=== PATIENT | female | born 1990 | race Caucasian/White ===

== ENCOUNTER → 2017-04-27 | Outpatient (REF) | payer OTHER | LOC: M LAB REF 17:22 | PROVIDERS: ATTEND Internal Medicine | DX: R73.9 Hyperglycemia, unspecified (principal) ==

== ENCOUNTER → 2018-09-10 | Outpatient (CLI) | payer OTHER ==
--- NOTE | 2018-09-10 13:00 | REP ---
Emergency first trimester obstetric sonography: History: Lower abdominal pain. Findings: Transabdominal scanning is performed. There is a single living intrauterine gestation. Embryonic pole measures 11.3 mm in crown-rump length. This corresponds with a gestational age estimate of 7 weeks 2 days. heart rate is recorded at 144 beats per minute. No subchorionic hemorrhage is seen. There is a somewhat hypoechoic corpus luteum cyst in the maternal left ovary measuring 3.3 cm in greatest diameter. Impression: Viable single intrauterine gestation at 7 weeks 2 days by crown-rump length. 3.3 cm corpus luteum cyst. VIVIEN by sonography April 27, 2019. Electronically Signed by Juni Thornton MD 09/10/2018 03:36 P
== END ==
LOC: M RAD 11:57
PROVIDERS: ATTEND Physician Assistant
DX: R10.30 Lower abdominal pain, unspecified (principal); Z32.01 Encounter for pregnancy test, result positive; Z3A.01 Less than 8 weeks gestation of pregnancy

== ENCOUNTER → 2018-09-10 | Outpatient (CLI) | payer OTHER ==
[2018-09-10 12:32] LABS: BASO # 0.1 10^3/uL (0.0-0.2); BASO % 0.4 % (0.0-1.0); EOS # 0.1 10^3/uL (0.0-0.50); EOS % 0.7 % (0.0-3.0); HEMATOCRIT 39.6 % (36.0-47.0); HEMOGLOBIN 13.4 g/dl (12.0-15.5); LYMPH # 2.8 10^3/uL (1.5-6.5); LYMPH % 19.9 % (24.0-44.0); MEAN CORPUSCULAR HEMOGLOBIN 28.9 pg (27.0-33.0); MEAN CORPUSCULAR HGB CONC 33.8 g/dl (32.0-36.5); MEAN CORPUSCULAR VOLUME 85.5 fl (80.0-96.0); MONO # 0.6 10^3/uL (0.0-0.8); NEUTROPHILS # 10.6 10^3/uL (1.8-7.7); NEUTROPHILS % 74.5 % (36.0-66.0); PLATELET COUNT, AUTOMATED 305 10^3/uL (150-450); RED BLOOD COUNT 4.63 10^6/uL (4.00-5.40); WHITE BLOOD COUNT 14.2 10^3/uL (4.0-10.0)
[2018-09-10 12:59] LABS: ALBUMIN 3.7 GM/DL (3.2-5.2); ALT/SGPT 21 U/L (12-78); BILIRUBIN,TOTAL 0.5 MG/DL (0.2-1.0); BLOOD UREA NITROGEN 6 MG/DL (7-18); CALCIUM LEVEL 8.8 MG/DL (8.5-10.1); CARBON DIOXIDE LEVEL 25 MEQ/L (21-32); CHLORIDE LEVEL 102 MEQ/L (98-107); CREATININE FOR GFR 0.71 MG/DL (0.55-1.30); GLOMERULAR FILTRATION RATE > 60.0 (>60); GLUCOSE, FASTING 100 MG/DL (70-100); HCG, SERUM QUANTITATIVE 28721 MIU/ML; POTASSIUM SERUM 4.4 MEQ/L (3.5-5.1); SODIUM LEVEL 135 MEQ/L (136-145); TOTAL PROTEIN 7.9 GM/DL (6.4-8.2)
== END ==
LOC: M WUC 11:12
PROVIDERS: ATTEND Internal Medicine
DX: R10.30 Lower abdominal pain, unspecified (principal)

== ENCOUNTER → 2018-09-10 | Outpatient (REF) | payer OTHER ==
[2018-09-12 08:31] LABS: CHLAMYDIA DNA AMPLIFICATION NEGATIVE (NEGATIVE); GC DNA AMPLIFICATION NEGATIVE (NEGATIVE)
== END ==
LOC: M LAB REF 11:48
PROVIDERS: ATTEND Physician Assistant
DX: R10.30 Lower abdominal pain, unspecified (principal)

== ENCOUNTER → 2018-09-27 | Outpatient (CLI) | payer OTHER ==
[2018-09-27 14:02] LABS: HEMOGLOBIN A1c 6.6 %
== END ==
LOC: M SMT 10:32
PROVIDERS: ATTEND Obstetrics & Gynecology
DX: O24.111 Pre-existing type 2 diabetes mellitus, in pregnancy, first trimester (principal)

== ENCOUNTER → 2018-11-24 | Outpatient (CLI) | payer OTHER ==
--- NOTE | 2018-11-24 14:16 | REP ---
OB ULTRASOUND: Real-time sonographic evaluation of the gravid uterus is performed. There is a single living intrauterine gestation. Estimated gestational age is 18 weeks, EDC 04/27/2019. Today's measurements indicate appropriate growth. BPD 40 mm = 18 weeks 0 days, 52nd percentile HC 159 mm = 18 weeks 5 days, 73rd percentile AC 127 mm = 18 weeks 2 days, 56th percentile Femur length 30 mm = 19 weeks 2 days, 82nd percentile HC/AC ratio 1.25 within normal range. Estimated weight 254 grams, 76th percentile. Cervix is closed and measures 4.4 cm in length. heart rate 141 beats per minute. SEEN/GROSSLY UNREMARKABLE Lateral ventricles Yes Posterior fossa No Upper lip No Four-chamber heart No LVOT No RVOT No Stomach Yes Cord insertion Yes Three vessel cord Yes Kidneys Yes Bladder Yes Spine No position: Breech. Placenta: Posterior and grade 0 with no previa or abruption. Amniotic fluid: Within normal limits. Electronically Signed by Dallas Marquez MD 11/25/2018 10:54 A
== END ==
LOC: M RAD 10:29
PROVIDERS: ATTEND Obstetrics & Gynecology
DX: O24.111 Pre-existing type 2 diabetes mellitus, in pregnancy, first trimester (principal); Z3A.18 18 weeks gestation of pregnancy; O32.1XX0 Maternal care for breech presentation, not applicable or unspecified

== ENCOUNTER → 2018-12-10 | Outpatient (CLI) | payer OTHER ==
--- NOTE | 2018-12-10 18:40 | REP ---
Obstetric sonography: History: Supervision of for anatomy. Follow-up study. Findings: Scanning through the gravid uterus demonstrates a viable single intrauterine gestation in a cephalic lie. motion is observed and heart rate is recorded at 136 beats per minute. A posterior grade zero placenta is seen without evidence of previa or abruption. Amniotic fluid is subjectively normal. Closed cervical length is 3.7 cm. No extrauterine abnormalities observed. There has been appropriate interval growth. Exam quality is inhibited by maternal body habitus. spine still less than optimally seen in the axial plane. Sagittal imaging is unremarkable. The upper extremities are less than optimally seen due to position but these were identified previously. The following additional anatomic structures are identified today and felt to be unremarkable: cranium, choroid plexus, cavum, cerebellum and posterior fossa, face and profile, lungs, four-chamber heart with left and right ventricular outflow tract views, diaphragm, left-sided stomach, abdominal wall cord insertion, three-vessel cord, kidneys and bladder, lower extremities. Biometry chart: BPD 4.5 cm 19 weeks 4 days Head circumference 18.3 cm 20 weeks 5 days Abdominal circumference 16.2 cm 21 weeks 2 days Femur length 3.4 cm 20 weeks 6 days Humeral length 3.6 cm 22 weeks 3 days HC/AC ratio normal 1.13, cephalic index normal 0.66 (0.70-0.86) estimated weight 390 grams, 0 pounds 13 ounces, 71st percentile for 20 weeks 2 days. Impression: Viable single intrauterine gestation at 21 weeks 0 days by today's sonographic criteria. Expected gestational age estimate based on prior sonography is 20 weeks 2 days. VIVIEN by prior sonography April 27, 2019. Electronically Signed by Juni Thornton MD 12/10/2018 08:29 P
== END ==
LOC: M RAD 15:24
PROVIDERS: ATTEND Obstetrics & Gynecology
DX: O24.112 Pre-existing type 2 diabetes mellitus, in pregnancy, second trimester (principal); Z3A.21 21 weeks gestation of pregnancy

== ENCOUNTER → 2018-12-31 | Outpatient (CLI) | payer OTHER ==
--- NOTE | 2018-12-31 19:10 | REP ---
Clinical: Anatomical evaluation. Comparison: 12/10/2018 . Findings: Examination demonstrates a single live intrauterine in breech presentation. motion is identified by technologist. Placenta is noted anterior/fundal and grade zero without evidence for placenta previa or abruption. Amniotic fluid volume is normal. Cervix measures 4.3 cm in length and appears closed. No evidence for nuchal cord. Gestational age by LMP 23 weeks 2 days with VIVIEN 04/27/2019 . Gestational age by current measurements 23 weeks 1 day with VIVIEN 04/28/2019 . FHR equals 125 beats per minute. Estimated weight 656 grams ( 69th percentile). Anatomical assessment demonstrates normal structures including cranium, choroid plexus, cavum, facial features, lungs, diaphragm, stomach, cord insertion/three-vessel cord, kidneys/bladder, and spine. Impression: Single live intrauterine in breech presentation demonstrating appropriate interval growth. In conjunction with prior examination anatomical assessment is complete and normal. No gross abnormalities are identified. Electronically Signed by Marquise Maya MD 12/31/2018 07:01 P
== END ==
LOC: M RAD 17:42
PROVIDERS: ATTEND Obstetrics & Gynecology
DX: O24.112 Pre-existing type 2 diabetes mellitus, in pregnancy, second trimester (principal); O32.1XX0 Maternal care for breech presentation, not applicable or unspecified; Z3A.23 23 weeks gestation of pregnancy

== ENCOUNTER → 2019-02-01 | Outpatient (REF) | payer OTHER | LOC: M LAB REF 13:04 | PROVIDERS: ATTEND Specialist | DX: O24.112 Pre-existing type 2 diabetes mellitus, in pregnancy, second trimester (principal); Z3A.00 Weeks of gestation of pregnancy not specified ==

== ENCOUNTER → 2019-02-17 | Outpatient (CLI) | payer OTHER ==
--- NOTE | 2019-02-17 13:45 | REP ---
OB ULTRASOUND: Real-time sonographic evaluation of the gravid uterus performed. There is a single living intrauterine gestation with an estimated gestational age 30 weeks 1 day, EDC 04/27/2019. Today's measurements indicate appropriate growth. Biometry and Growth: BPD 74 mm = 29 weeks 6 days, 44th percentile HC 277 mm = 30 weeks 2 days, 52nd percentile AC 287 mm = 32 weeks 5 days, 89th percentile FL 62 mm = 32 weeks 2 days, 82nd percentile HC/AC ratio 0.96 slightly below normal range of 0.97 to 1.16 Estimated weight 1898 grams, 87th percentile. Visualized anatomy today includes stomach, three-vessel cord, kidneys, bladder, and spine which are grossly unremarkable. heart rate: 141 beats per minute. position: Vertex, Placenta: Posterior and grade 2 with no previa or abruption. Amniotic fluid: Within normal limits, MYNOR 15.0 within normal range of 9.0 to 23.5 S/D ratio: 2.19 below normal range of 2.5 to 3.5. RI: 0.54 below normal range of 0.59 to 0.75. Electronically Signed by Dallas Marquez MD 02/20/2019 07:13 P
== END ==
LOC: M RAD 09:21
PROVIDERS: ATTEND Specialist
DX: O24.112 Pre-existing type 2 diabetes mellitus, in pregnancy, second trimester (principal)

== ENCOUNTER → 2019-02-24 | Outpatient (CLI) | payer OTHER, MEDICAID ==
--- NOTE | 2019-02-25 07:13 | REP ---
OB ULTRASOUND AND BIOPHYSICAL PROFILE: Real-time sonographic evaluation of the gravid uterus performed. There is a single living intrauterine gestation with estimated gestational age reportedly 31 weeks 1 day, EDC 04/27/2019. Cervix is closed and measures approximately 2.8 cm in length. heart rate is 158 beats per minute. Amniotic fluid appears within normal limits, MYNOR 11.1 within normal range of 8.8 to 23.9. Biophysical profile score is 8/8. S/D ratio 2.20 is below normal range of 2.5 to 3.5. RI 0.54 is below normal range of 0.59 to 0.75. position vertex. Placenta is on the right, grade 1, with no previa or abruption. Electronically Signed by Dallas Marquez MD 02/25/2019 08:52 A
== END ==
LOC: M RAD 16:55
PROVIDERS: ATTEND Obstetrics & Gynecology
DX: O24.113 Pre-existing type 2 diabetes mellitus, in pregnancy, third trimester (principal); Z3A.31 31 weeks gestation of pregnancy; Z36.9 Encounter for antenatal screening, unspecified

== ENCOUNTER → 2019-03-03 | Outpatient (CLI) | payer OTHER, MEDICAID ==
--- NOTE | 2019-03-03 11:54 | REP ---
Obstetric ultrasound for biophysical profile for type 2 preexisting diabetes in . Gestational age by the first ultrasound is 32 weeks 1 day/VIVIEN is 04/27/2019. There is a single intrauterine gestation in a vertex presentation. The heart rate is 147 beats per minute. The placenta is posterior / fundal without evidence of previa or abruptio. The placenta is grade 1. Subjectively the amniotic fluid volume is normal. Amniotic fluid index: 10.0 (8.6 - 24.2). biophysical profile: Breathing 2.0 Movement 2.0 Tone 2.0 AFV 2.0 Total 8.0 / 8.0 Umbilical artery Doppler assessment: S/D ratio 2.03 (2.30-3.30) Resistive Index 0.51 (0.59-0.75 Diastolic Velocity 23.5 (>10 cm/sec) Electronically Signed by Dallas Clements MD 03/03/2019 11:46 A
== END ==
LOC: M RAD 10:56
PROVIDERS: ATTEND Obstetrics & Gynecology
DX: O24.113 Pre-existing type 2 diabetes mellitus, in pregnancy, third trimester (principal)

== ENCOUNTER → 2019-03-10 | Outpatient (CLI) | payer OTHER, MEDICAID ==
[~2019-03-10] MED LIST: COLA100C5 PO; GLUC500T PO; IBUP80TA PO; INSUNSD SC; INSURSD SC; PERCOCET PO; ZANT150T40 PO
--- NOTE | 2019-03-11 03:31 | REP ---
Clinical: well-being Comparison: 03/03/2019 . Findings: Examination demonstrates a single live intrauterine in cephalic presentation. motion is identified by technologist. Placenta is noted posterior/right lateral and grade zero without evidence for placenta previa or abruption. Amniotic fluid volume is normal. Cervix appears closed. No evidence for nuchal cord. Gestational age by LMP 33 weeks 1 day with VIVIEN 04/27/2019 . Gestational age by current measurements 34 weeks 6 days with VIVIEN 04/15/2019 . FHR equals 138 beats per minute. BPD 8.3 cm 33 weeks 3 days HC 30.9 cm 34 weeks 4 days AC 31.8 cm 35 weeks 5 days FL 7.0 cm 35 weeks 5 days HL 6.0 cm 34 weeks 5 days HC/AC ratio 0.97 Estimated weight 2660 grams ( 90th percentile). Biophysical profile score: 8/8 Umbilical cord SD ratio: 2.33 Amniotic fluid index: 12.7 cm Impression: Single live intrauterine in cephalic. Growth is upper limits of normal. No gross abnormality identified. Electronically Signed by Marquise Maya MD 03/11/2019 03:22 A
== END ==
LOC: M RAD 10:56
PROVIDERS: ATTEND Obstetrics & Gynecology
DX: O24.113 Pre-existing type 2 diabetes mellitus, in pregnancy, third trimester (principal); Z3A.34 34 weeks gestation of pregnancy

== ENCOUNTER → 2019-03-17 | Outpatient (CLI) | payer OTHER, MEDICAID ==
[~2019-03-17] MED LIST changes: -COLA100C5 PO; -GLUC500T PO; -IBUP80TA PO; -PERCOCET PO
--- NOTE | 2019-03-17 12:01 | REP ---
REASON FOR EXAM: Obtain biophysical profile, limited OB ultrasound, gestational diabetes. Multiple ultrasonographic images of the gravid uterus show a single living intrauterine gestation in the cephalic presentation. Doppler interrogation of the heart shows a heart rate of 152 beats per minute. Doppler interrogation of the umbilical artery shows an A/B ratio of 2.04. This is within the normal range. The subjective amniotic fluid volume is within normal limits. The calculated amniotic fluid index is 10.2 with an expected range 8.1 to 24.8. The placenta is right lateral and not low lying. The umbilica cord is seen draping over the neck. Biophysical Profile Scores: breathing 2 movement 2 Tone 2 Amniotic fluid volume 2 Giving a sum total of 8 out of 8. IMPRESSION: Limited OB ultrasound as described above. Electronically Signed by Sebastián Alexander DO 03/17/2019 03:41 P
== END ==
LOC: M RAD 10:22
PROVIDERS: ATTEND Obstetrics & Gynecology
DX: O24.113 Pre-existing type 2 diabetes mellitus, in pregnancy, third trimester (principal)

== ENCOUNTER 2019-03-23 11:35 | Outpatient (CLI) | payer OTHER, MEDICAID ==
[~2019-03-23] VITALS: Ht 160 cm; Wt 121.1 kg
[2019-03-23 12:23] VITALS: BP 109/59
[2019-03-23 12:59] LABS: HEMOGLOBIN 11.3 g/dl (12.0-15.5); MEAN CORPUSCULAR HEMOGLOBIN 26.7 pg (27.0-33.0); MEAN CORPUSCULAR HGB CONC 32.3 g/dl (32.0-36.5); MEAN CORPUSCULAR VOLUME 82.5 fl (80.0-96.0); PLATELET COUNT, AUTOMATED 253 10^3/uL (150-450); RED BLOOD COUNT 4.24 10^6/uL (4.00-5.40); WHITE BLOOD COUNT 12.8 10^3/uL (4.0-10.0)
[2019-03-23 13:39] LABS: ALBUMIN 2.4 GM/DL (3.2-5.2); ALT/SGPT 19 U/L (12-78); BILIRUBIN,TOTAL 0.3 MG/DL (0.2-1.0); BLOOD UREA NITROGEN 7 MG/DL (7-18); CALCIUM LEVEL 8.6 MG/DL (8.5-10.1); CARBON DIOXIDE LEVEL 23 MEQ/L (21-32); CHLORIDE LEVEL 107 MEQ/L (98-107); CREATININE FOR GFR 0.55 MG/DL (0.55-1.30); GLOMERULAR FILTRATION RATE > 60.0 (>60); GLUCOSE, FASTING 96 MG/DL (70-100); POTASSIUM SERUM 4.3 MEQ/L (3.5-5.1); SODIUM LEVEL 138 MEQ/L (136-145); TOTAL PROTEIN 6.7 GM/DL (6.4-8.2)
[2019-03-23 13:55] LABS: HEMOGLOBIN A1c 6.8 %
[2019-03-23] MEDS: BETAMETHASONE SOLUSPAN 6MG/ML INJ 5ML (J0702) IM SCH (14:05)
[2019-03-23] MEDS ORDERED: INSUNSD SC (14:31)
[2019-03-23] MEDS ORDERED: ZANT150T40 PO (14:31)
[2019-03-23] MEDS ORDERED: INSURSD SC (14:31)
[2019-03-23 15:17] VITALS: BP 105/55
--- NOTE | 2019-03-23 15:23 | REP ---
OB ULTRASOUND AND BIOPHYSICAL PROFILE: Real-time sonographic evaluation of the gravid uterus performed. There is a single living intrauterine gestation. The estimated gestational age is 35 weeks 0 days, EDC 04/27/2019. heart rate 143 beats per minute. Amniotic fluid appears within normal limits, MYNOR 10.6 within normal range of 7.9 to 24.9. Biophysical profile score is 8/8. S/D ratio 2.32 within normal range of 2.0 to 3.0. RI 0.57 is slightly below normal range of 0.59 to 0.75. position vertex. Placenta is on the right and grade 1 with no previa or abruption. Electronically Signed by Dallas Marquez MD 03/25/2019 10:46 A
--- NOTE | 2019-03-23 16:06 | IPN ---
DATE: 03/23/2019 Sharyn is a 27-year-old 1, para 0 at 35 weeks gestation, EDC of 04/27/2019 based on first trimester ultrasound. She presents to labor and delivery today per consult with Dr. Roque Mcnair with report of her 2-hour postprandial following breakfast glucose elevated at greater than 200 and decreased movement. She does deny contractions, vaginal bleeding or leakage of fluid. The fetus has been active. Her care was initiated at [facility] in the first trimester. Her course complicated by preexisting diabetes, insulin dependent diabetes, not very well controlled. OBSTETRICAL HISTORY: [facility]: O positive. Antibody screen negative, rubella equivocal, VDRL nonreactive. Urine culture no growth. Hepatitis B surface antigen negative, HIV negative. Hepatitis C antibody nonreactive. Gonorrhea and chlamydia negative. Hemoglobin A1c on 01/26/2019 was 5.5. Group B streptococcus (GBS) is unknown at this time. She did not undergo genetic serum screening labs. PAST MEDICAL HISTORY: Preexisting diabetes, abnormal Pap smear, childhood varicella. SURGERIES: [place] tooth extraction, colposcopy. FAMILY HISTORY: Diabetes, hypertension, heart disease and asthma. SOCIAL HISTORY: The patient is . She is a non-smoker. She denies alcohol and drug use. She does report a remote history of gonorrhea. She denies history of abuse -- physical, sexual and emotional. ALLERGIES: No known drug allergies. CURRENT MEDICATIONS: Include vitamin. Humulin NPH insulin 58 units with Humulin regular insulin 34 units every morning, Humulin NPH insulin 30 units, Humulin R insulin 34 units every night. OBJECTIVE: Temperature 97.6, pulse 100, respirations 16. Blood pressure is 109/59. She is alert and oriented times three. She does not appear in any distress. heart rate is 140 with moderate variability, positive accelerations and negative decelerations. There is no pattern of contractions. Sterile vaginal exam is deferred. Her BPP today is normal with a score of 8 out of 8. MYNOR is 10.6 cm. CBC with a white count of 12.8, hemoglobin 11.3, hematocrit 35 and platelets 253. Her glucose was 96 with her lab draw and bedside fingerstick was 113. All other labs within normal limits. Her hemoglobin A1c today is 6.8 with an average estimated glucose of 148. ASSESSMENT: Intrauterine at 35 weeks. heart rate category 1 and uncontrolled diabetes, per patient report. PLAN: Per consult with Dr. Roque Mcnair, the patient is to be observation. We will do continuous monitoring. She has been given one dose of betamethasone and the plan is to keep her overnight until her second betamethasone. Further plan of care will be made at that time pending the continuous monitoring and her glucose management.
[2019-03-23] MEDS ORDERED: HumuLIN R (REGULAR) INSULIN (NovoLIN R) **100U/ML** PER UNIT SC SCH (18:30)
[2019-03-23] MEDS ORDERED: HumuLIN N INSULIN (NovoLIN N) PER UNIT SC SCH (18:30)
[2019-03-23 18:52] VITALS: BP 123/71
[2019-03-23 20:31] VITALS: BP 132/60
[2019-03-23 21:42] VITALS: BP 132/86
[2019-03-23 22:57] VITALS: BP 118/59
[2019-03-24 03:02] VITALS: BP 110/58
[2019-03-24 06:45] VITALS: BP 119/66
[2019-03-24] MEDS ORDERED: HumuLIN N INSULIN (NovoLIN N) PER UNIT SC SCH (07:30)
[2019-03-24] MEDS ORDERED: HumuLIN R (REGULAR) INSULIN (NovoLIN R) **100U/ML** PER UNIT SC SCH (07:30)
[2019-03-24 13:46] VITALS: BP 108/55
[2019-03-24] MEDS: BETAMETHASONE SOLUSPAN 6MG/ML INJ 5ML (J0702) IM SCH (14:17)
== END 2019-03-24 16:00 | disposition home or self-care (01) ==
LOC: M LDO 11:35
PROVIDERS: ATTEND Advanced Practice Midwife
DX: O99.810 Abnormal glucose complicating pregnancy (principal); O36.8130 Decreased fetal movements, third trimester, not applicable or unspecified; Z3A.35 35 weeks gestation of pregnancy
CPT/HCPCS: 36415; 59025; 76815; 76819; 76820; 80053; 83036; 85027; 87081; 96372; G0378; G0463; J0702

== ENCOUNTER 2019-03-30 09:02 | Inpatient (IN) | payer OTHER, MEDICAID ==
[2019-03-30] VITALS (9 sets, daily range): BP systolic 106–135; BP diastolic 54–71
[~2019-03-30] VITALS: Ht 160 cm; Wt 120.8 kg
[2019-03-30] MEDS ORDERED: INSURSD SC (09:34)
[2019-03-30] MEDS ORDERED: INSUNSD SC (09:34)
[2019-03-30] MEDS ORDERED: INSULIN HUMAN REGULAR 100 UNITS in NS 99 ML IV SCH ×2 (10:00→23:00)
[2019-03-30 10:33] LABS: HEMATOCRIT 35.5 % (36.0-47.0); HEMOGLOBIN 11.7 g/dl (12.0-15.5); MEAN CORPUSCULAR HEMOGLOBIN 27.5 pg (27.0-33.0); MEAN CORPUSCULAR VOLUME 83.3 fl (80.0-96.0); PLATELET COUNT, AUTOMATED 258 10^3/uL (150-450); RED BLOOD COUNT 4.26 10^6/uL (4.00-5.40); WHITE BLOOD COUNT 13.5 10^3/uL (4.0-10.0)
[2019-03-30] MEDS ORDERED: SLF 3 ML SYR IV PRN (10:45)
[2019-03-30] MEDS: INSULIN HUMAN REGULAR 100 UNITS in NS 99 ML IV SCH ×2 (11:26→15:47)
[2019-03-30] MEDS: NS 1,000 ML IV SCH ×2 (11:30→18:00)
[2019-03-30] MEDS: miSOPROStol 50 MCG 1/2 TAB (S0191) PO SCH ×2 (14:19→18:35)
--- NOTE | 2019-03-30 19:13 | HPE ---
DATE OF ADMISSION: 03/30/2019 HISTORY OF PRESENT ILLNESS: The patient is a 28-year-old female who is a 1, para 0 at 36 weeks gestation with an estimated due date (VIVIEN) of 04/27/2019 based off of her first trimester ultrasound. She initiated care in her first trimester with [facility]. Her has been complicated by type 2 diabetes which has been difficult to control. The patient presents to labor and delivery for an induction of labor at 36 weeks gestation for uncontrolled gestational diabetes. She reports active movement. She denies contractions, vaginal bleeding or leaking of fluid. ALLERGIES: No known drug allergies. CURRENT MEDICATIONS: She has currently been using a morning dose of NPH insulin 58 with regular at 34 units and her evening dose of NPH is 30 units with regular of 34 units and vitamins. LABORATORY DATA: Her blood type is O+, antibody screen is negative. Her hemoglobin and hematocrit in her first trimester was 12.9 and 38.7 with platelets of 306. She is equivocal to Rubella. VDRL is nonreactive. Her urine culture had mixed julian. HIV is negative. Hepatitis C is nonreactive. Gonorrhea and Chlamydia are both negative. Her third trimester hemoglobin and hematocrit level was 11.5 and 34.4 with platelets of 260. Her GBS is negative. Her early hemoglobin A1c was 6.6 and third trimester hemoglobin A1c is 5.5. Her repeat urine culture was negative. PAST MEDICAL HISTORY: Type 2 diabetes. PAST SURGICAL HISTORY: Colposcopy in 2008 and her wisdom teeth. SOCIAL HISTORY: The patient denies any history of alcohol or drug abuse prior to or during . She reports she is not a smoker. She has a history of gonorrhea in the past. VITAL SIGNS: Temperature 98.0, heart rate is 106, respiratory rate is 18, blood pressure is 134/68. heart rate is 140, moderate variability, positive accelerations, no decelerations. Contractions are occasional. STERILE VAGINAL EXAMINATION (SVE): 1 cm dilated, 75% effaced, -3 station, anterior, soft moderate with scant amount of bloody show with examination. PHYSICAL EXAMINATION: GENERAL: Alert and oriented times three. RESPIRATORY: Regular rate and no use of accessory muscles. ABDOMEN: Gravid, cephalic presentation via Jesus's and sterile vaginal examination (SVE). LOWER EXTREMITIES: Generalized edema. No clonus. ASSESSMENT: Intrauterine (IUP) at 36 weeks gestation, induction of labor for uncontrolled gestational diabetes, negative group B Streptococcus (GBS), category 1 heart rate tracing. PLAN: After consulting Dr. Mcnair his recommendation is for IOL. Admit the patient to labor and delivery. Out of bed ad ezequiel. Carbohydrate-counted diet. Saline lock and laboratories per unit protocol. Insulin drip ordered to help maintain blood sugars with sliding scale. Fingersticks every 2 hours while in latent labor and every 1 hour while in active labor. Cytotec ordered for cervical ripening. Anesthesia consult per the patient's request. Anticipate cervical ripening. MTDD
[2019-03-30] MEDS: INSULIN IV RATE CHANGE DOCUMENTATION ML/HR XX SCH ×2 (20:04→21:56)
[2019-03-30] MEDS: SLF 3 ML SYR IV SCH ×2 (22:00→23:27)
--- NOTE | 2019-03-30 22:59 | IPNPDOC ---
Obstetrical Progress Note Date of Service Mar 30, 2019 Subjective Patient reports feeling cramping. She desires something to help her sleep. Objective Vital Signs Date Time Temp Pulse Resp B/P (MAP) Pulse Ox O2 Delivery O2 Flow Rate FiO2 03/30/19 22:43 98.5 79 18 127/71 (89) Assessment Heart Rate (FHR): 150 Variability: Moderate Accelerations: Positive Decelerations: None Heart Rate Tracing: Category I Tocometer Contractions: Yes Frequency: regular, other (2-4 minutes) Sterile Vaginal Examination Dilation: 1cm Effacement (%): other (75%) Station: -3 Cervical Consistency: Soft Cervical Position: Anterior Postion/Presentation: Cephalic presentation Assessment and Plan Age: 28 : 1 Term: 0 Pre-term: 0 Abortions: 0 Livin EGA at Admission: 36.0 Status: Reassuring Group B Streptococcus: Negative Anticipate: Vaginal Delivery Additional Comments Cook's toney bulb placed with 50/40 cc of sterile water. Patient tolerated well. IV Pitocin ordered and to be started. Patient continues with every 2 hour fingersticks and insulin drip as needed. Benadryl PO ordered to help with sleep. TESSA DENNIS CNM Mar 30, 2019 22:59
[2019-03-30] MEDS ORDERED: diphenhydrAMINE 25 MG CAP PO ONE (23:00)
[2019-03-30] MEDS ORDERED: diphenhydrAMINE 50 MG CAP PO ONE (23:00)
[2019-03-30] MEDS ORDERED: NS 1,000 ML IV SCH (23:00)
[2019-03-30] MEDS ORDERED: OXYTOCIN DRIP 30 UNITS in APPROPRIATE DILUENT 1 EA IV SCH (23:00)
[2019-03-30] MEDS ORDERED: DOCUSATE SODIUM 100 MG CAP PO PRN (23:45)
[2019-03-30] MEDS ORDERED: GLYCERIN ADULT SUPP PR PRN (23:45)
[2019-03-31] VITALS (19 sets, daily range): BP systolic 96–145; BP diastolic 53–94
[2019-03-31] MEDS: SLF 3 ML SYR IV SCH (06:00)
[2019-03-31] MEDS: NS 1,000 ML IV SCH (06:09)
--- NOTE | 2019-03-31 13:59 | IPNPDOC ---
Text Note Date of Service The patient was seen on 03/31/19. NOTE S: Feeling contractions, no SROM. Feeling baby move O: Vitals stable Abdomen: Gravid SVE: 4/50/-3 FHR: 150 bpm, moderate variability, accels, no decels TOCO: contractions q2-5 minutes A/P: 28 yo at 36 weeks and 1 day EGA, being induced for uncontrolled DM - status reassuring -beta-complete -s/p cytotec x2, toney -AROM, IUPC and FSE placed -anticipate VS,Fishbone, I+O VS, Fishbone, I+O Vital Signs Date Time Temp Pulse Resp B/P (MAP) Pulse Ox O2 Delivery O2 Flow Rate FiO2 03/30/19 22:43 98.5 79 18 127/71 (89) I&O- Last 24 Hours up to 6 AM 03/31/19 05:59 Intake Total 400 ml Output Total 1250 ml Balance -850 ml GME ATTESTATION GME ATTESTATION My faculty preceptor for this patient encounter was physically present during the encounter and was fully available. All aspects of the patient interview, examination, medical decision making process, and medical care plan development were reviewed and approved by the faculty preceptor. The faculty preceptor is aware and concurs with the plan as stated in the body of this note and will attest to such by his/her cosignature. TAYE HERCULES DO Mar 31, 2019 13:59
[2019-03-31] MEDS ORDERED: FENTANYL 2MCG/ML ROPIVACAINE 0.2% IN 0.9% NACL 100ML IVBAG As Ordered ONE (15:48)
[2019-03-31] MEDS ORDERED: LACTATED RINGER'S 1000 ML IV PRN (17:00)
[2019-03-31] MEDS ORDERED: ePHEDrine SULFATE 25 MG/5 ML(5MG/ML) SYRINGE IV PRN (17:00)
[2019-03-31] MEDS ORDERED: NALOXONE INJ 0.4 MG/1 ML VIAL (J2310) IV PRN (17:00)
[2019-03-31] MEDS ORDERED: ONDANSETRON 4MG/2ML VIAL (J2405) IV PRN (17:00)
[2019-03-31] MEDS ORDERED: FENTANYL/ROPIVACAINE/NACL BAG 100 ML EPIDURAL SCH (17:00)
[2019-03-31] MEDS ORDERED: diphenhydrAMINE INJ 50MG/ML VIAL (J1200) IV PRN (17:00)
[2019-03-31] MEDS ORDERED: EPIDURAL/PCA KEYS XX PRN (17:00)
[2019-03-31] MEDS ORDERED: REFRIGERATOR IV KEYS XX PRN (17:00)
[2019-03-31] MEDS ORDERED: EPIDURAL COMMENT XX SCH (17:00)
--- NOTE | 2019-03-31 17:19 | IPNPDOC ---
Text Note Date of Service The patient was seen on 03/31/19. NOTE S: Much better pain control after epidural O: Vitals stable Abdomen: Gravid SVE: 5/50/-3 FHR: 150 bpm, moderate variability, accels, no decels TOCO: contractions q2-4 minutes A/P: 28 yo at 36 weeks and 1 day EGA, being induced for uncontrolled DM - status reassuring -beta-complete -s/p cytotec x2, toney -AROM, IUPC and FSE placed -epidural, resting comfortably -anticipate VS,Fishbone, I+O VS, Fishbone, I+O Vital Signs Date Time Temp Pulse Resp B/P (MAP) Pulse Ox O2 Delivery O2 Flow Rate FiO2 03/30/19 22:43 98.5 79 18 127/71 (89) I&O- Last 24 Hours up to 6 AM 03/31/19 06:00 Intake Total 400 ml Output Total 1250 ml Balance -850 ml GME ATTESTATION GME ATTESTATION My faculty preceptor for this patient encounter was physically present during the encounter and was fully available. All aspects of the patient interview, examination, medical decision making process, and medical care plan development were reviewed and approved by the faculty preceptor. The faculty preceptor is aware and concurs with the plan as stated in the body of this note and will attest to such by his/her cosignature. TAYE HERCULES DO Mar 31, 2019 17:18
[2019-03-31] MEDS ORDERED: BICITRA 30ML SOLN UDC As Ordered ONE (23:02)
[2019-03-31] MEDS ORDERED: ceFAZolin 2 GM/D5W 50 ML IV BAG (J0690 PER 500MG) As Ordered ONE (23:03)
[2019-03-31] MEDS ORDERED: AZITHROMYCIN INJ 500MG VIAL (J0456) As Ordered ONE (23:03)
[2019-03-31] MEDS ORDERED: AZITHROMYCIN INJ 500 MG, VIAL MATE ADAPTER 1 EACH in D5W 250 ML IV ONE (23:15)
[2019-03-31] MEDS ORDERED: BICITRA 30ML SOLN UDC PO ONE (23:15)
[2019-03-31] MEDS ORDERED: AZITHROMYCIN INJ 500 MG, VIAL MATE ADAPTER 1 EACH in NS 250 ML IV ONE (23:15)
[2019-04-01] VITALS (8 sets, daily range): BP systolic 97–120; BP diastolic 54–62
[2019-04-01] MEDS ORDERED: OXYTOCIN DRIP 30 UNITS in APPROPRIATE DILUENT 1 EA IV SCH (00:40)
[2019-04-01] MEDS: LR 1,000 ML IV SCH ×3 (00:40→16:40)
[2019-04-01] MEDS ORDERED: RHOGAM 300 MCG (1500 IU) INJ (J2790) IM SCH (00:45)
[2019-04-01] MEDS ORDERED: ACETAMINOPHEN 500 MG TAB PO PRN (00:45)
[2019-04-01] MEDS ORDERED: PROMETHAZINE 25 MG TAB PO PRN (00:45)
[2019-04-01] MEDS ORDERED: MEASLES,MUMPS,RUBELLA VACCINE INJ (MMR-II) (90707) SC SCH (00:45)
[2019-04-01] MEDS ORDERED: MEPERIDINE INJ 25 MG/ML VIAL (J2175) As Ordered ONE (00:47)
[2019-04-01] MEDS ORDERED: LR 1,000 ML IV SCH (01:15)
[2019-04-01] MEDS ORDERED: fentaNYL 100 MCG/2 ML INJECTION (J3010) IV PRN (01:15)
[2019-04-01] MEDS ORDERED: NALBUPHINE HCL 10 MG/ML AMP (J2300) IV PRN (01:15)
[2019-04-01] MEDS ORDERED: ONDANSETRON 4MG/2ML VIAL (J2405) IV PRN (01:15)
[2019-04-01] MEDS ORDERED: MEPERIDINE INJ 25 MG/ML VIAL (J2175) IV PRN (01:15)
[2019-04-01] MEDS: ONDANSETRON 4MG/2ML VIAL (J2405) IV PRN ×2 (02:25→21:27)
[2019-04-01] MEDS: PERCOCET 5MG/325MG TAB PO PRN (03:20)
[2019-04-01] MEDS: KETOROLAC 30 MG/ML VIAL (J1885) IV SCH ×3 (06:40→19:53)
--- NOTE | 2019-04-01 07:32 | IPNPDOC ---
Text Note Date of Service The patient was seen on 04/01/19. NOTE Postop Day 1 s/p primary LTCS; complicated by uncontrolled DM S: Pain well controlled, lochia and bleeding decreasing, still has catheter in place, has not ambulated yet, continues with nausea and itching secondary to anesthesia medication, has only been able to keep down a small amount of Pepsi.Would like to breast feed.No headaches or vision changes. O: vitals stable Heart: RRR, no murmurs/gallops/rubs Lungs: CTA BL Abd: Fundus at U-1 and firm; dressing dry and intact Ext: mild bilateral leg swelling, nontender, Litzy's negative bilaterally A/P: 28 yo G1 now P1. Postop day 1 s/p primary LTCS. Hemodynamically stable, afebrile, good pain control. Recovering well. -Routine care and advancement -DC toney catheter -PostOp Labs pending -Anticipate discharge Thursday/Thursday VS,Fishbone, I+O VS, Fishbone, I+O Vital Signs Date Time Temp Pulse Resp B/P (MAP) Pulse Ox O2 Delivery O2 Flow Rate FiO2 04/01/19 06:00 98.8 75 18 114/62 (79 97 I&O- Last 24 Hours up to 6 AM 04/01/19 06:00 Intake Total 200 ml Output Total 3075 ml Balance -2875 ml GME ATTESTATION GME ATTESTATION My faculty preceptor for this patient encounter was physically present during the encounter and was fully available. All aspects of the patient interview, examination, medical decision making process, and medical care plan development were reviewed and approved by the faculty preceptor. The faculty preceptor is aware and concurs with the plan as stated in the body of this note and will attest to such by his/her cosignature. TAYE HERCULES DO Apr 01, 2019 07:32
[2019-04-01] MEDS: DOCUSATE SODIUM 100 MG CAP PO SCH ×2 (08:03→19:53)
[2019-04-01] MEDS: PRENATAL VITAMINS CHEWABLE TABLET PO SCH (08:03)
[2019-04-01] MEDS ORDERED: COLA100C5 PO (10:49)
[2019-04-01] MEDS ORDERED: IBUP80TA PO (10:49)
[2019-04-01] MEDS ORDERED: PERCOCET PO (10:49)
[2019-04-01] MEDS ORDERED: GLUC500T PO (10:52)
[2019-04-01] MEDS ORDERED: ANUSOL HC CREAM 30GM TOP PRN (18:00)
[2019-04-01] MEDS: metFORMIN (GLUCOPHAGE) 500 MG TAB PO SCH (18:34)
[2019-04-02] MEDS: LR 1,000 ML IV SCH ×3 (00:40→19:00)
[2019-04-02] MEDS: PERCOCET 5MG/325MG TAB PO PRN ×4 (01:39→17:50)
[2019-04-02 02:00] VITALS: BP 102/80
[2019-04-02] MEDS: IBUPROFEN 800 MG TAB PO SCH ×3 (04:06→18:19)
[2019-04-02 06:00] VITALS: BP 107/55
[2019-04-02 07:15] LABS: HEMATOCRIT 32.2 % (36.0-47.0); HEMOGLOBIN 10.5 g/dl (12.0-15.5); MEAN CORPUSCULAR HEMOGLOBIN 27.7 pg (27.0-33.0); MEAN CORPUSCULAR HGB CONC 32.6 g/dl (32.0-36.5); PLATELET COUNT, AUTOMATED 252 10^3/uL (150-450); RED BLOOD COUNT 3.79 10^6/uL (4.00-5.40); WHITE BLOOD COUNT 14.5 10^3/uL (4.0-10.0)
[2019-04-02] MEDS: PRENATAL VITAMINS CHEWABLE TABLET PO SCH (08:47)
[2019-04-02] MEDS: DOCUSATE SODIUM 100 MG CAP PO SCH ×2 (08:47→20:35)
[2019-04-02] MEDS: metFORMIN (GLUCOPHAGE) 500 MG TAB PO SCH ×2 (08:47→18:18)
--- NOTE | 2019-04-02 08:51 | IPNPDOC ---
Text Note Date of Service The patient was seen on 04/02/19. NOTE Postop Day 2 s/p primary LTCS; complicated by uncontrolled DM S: Pain moderately controlled, lochia and bleeding decreasing, voiding spontaneously (does not want to urinate due to pain at incision site), ambulating without assistance, tolerating regular diet.Breast feeding. O: vitals stable Heart: RRR, no murmurs/gallops/rubs Lungs: CTA BL Abd: Fundus at U-1 and firm; dressing dry and intact Ext: no lower extremity edema, nontender, Litzy's negative bilaterally A/P: 28 yo G1 now P1. Postop day 2 s/p primary LTCS. Hemodynamically stable, afebrile, adequate pain control. Recovering well. -Routine care and advancement -Abdominal binder to assist with pain during voiding; patient education about importance of voiding spontaneously -Anticipate discharge tomorrow VS,Fishbone, I+O VS, Fishbone, I+O Laboratory Tests 04/02/19 06:55 Red Blood Count 3.79 L, Mean Corpuscular Volume 85.0, Mean Corpuscular Hemoglo bin 27.7, Mean Corpuscular Hemoglobin Concent 32.6, Red Cell Distribution Width 14.2 Vital Signs Date Time Temp Pulse Resp B/P (MAP) Pulse Ox O2 Delivery O2 Flow Rate FiO2 04/02/19 06:00 98.5 73 16 107/55 (72 98 I&O- Last 24 Hours up to 6 AM 04/02/19 06:00 Intake Total 1922 ml Output Total 2250 ml Balance -328 ml GME ATTESTATION GME ATTESTATION My faculty preceptor for this patient encounter was physically present during the encounter and was fully available. All aspects of the patient interview, examination, medical decision making process, and medical care plan development were reviewed and approved by the faculty preceptor. The faculty preceptor is aware and concurs with the plan as stated in the body of this note and will attest to such by his/her cosignature. TAYE HERCULES DO Apr 02, 2019 08:51
[2019-04-02 18:00] VITALS: BP 143/67
[2019-04-03] MEDS: LR 1,000 ML IV SCH (00:40)
[2019-04-03] MEDS: PERCOCET 5MG/325MG TAB PO PRN ×3 (00:53→13:27)
[2019-04-03] MEDS: IBUPROFEN 800 MG TAB PO SCH ×2 (04:03→10:59)
[2019-04-03 05:42] VITALS: BP 111/55
[2019-04-03] MEDS: DOCUSATE SODIUM 100 MG CAP PO SCH (07:37)
[2019-04-03] MEDS: metFORMIN (GLUCOPHAGE) 500 MG TAB PO SCH (07:37)
[2019-04-03] MEDS: PRENATAL VITAMINS CHEWABLE TABLET PO SCH (07:37)
--- NOTE | 2019-04-03 14:47 | DSES ---
DATE OF ADMISSION: 03/30/2019 DATE OF DISCHARGE: 04/03/2019 28-year-old G1, P0 female at 36 weeks gestation presents for labor induction. INDICATION FOR DELIVERY: +39 weeks and poorly controlled type 2 diabetes. HOSPITAL COURSE: The patient was admitted on 03/30/2019. Labor induction was initiated with Misoprostol. She made slow progress in labor. She reached 5 cm dilation with no further change. The decision was made to proceed with section. On 04/01/2019, she underwent primary low transverse section for a 3370 gram infant. No complications. Her postoperative course was unremarkable. She had adequate return of bladder and bowel function. Postoperative hemoglobin was 10.5 gm/dL. She is deemed stable for discharged on postoperative day #3. ADMISSION DIAGNOSIS: 36 weeks. Poorly controlled type 2 diabetes. DISCHARGE DIAGNOSIS: Delivered. PROCEDURE: Primary low transverse section. DISPOSITION: Patient will followup with Dr. Mcnair in 2 weeks. Instructions were reviewed.
== END 2019-04-03 14:03 | disposition home or self-care (01) | DRG 788 ==
LOC: M LDO 09:02 → M LDI 09:03 → M OBS 04-01 02:00
PROVIDERS: ADMIT Advanced Practice Midwife; ATTEND Obstetrics & Gynecology
PROC: 3E0P7GC Introduction of Other Therapeutic Substance into Female Reproductive, Via Natural or Artificial Opening (ICD-10-PCS; 2019-03-31)
PROC: 10D00Z1 Extraction of Products of Conception, Low, Open Approach (ICD-10-PCS; principal; 2019-03-31 22:30)
DX: O24.12 Pre-existing type 2 diabetes mellitus, in childbirth (principal); Z3A.36 36 weeks gestation of pregnancy; Z37.0 Single live birth; E11.65 Type 2 diabetes mellitus with hyperglycemia; Z79.4 Long term (current) use of insulin; O32.4XX0 Maternal care for high head at term, not applicable or unspecified; O62.0 Primary inadequate contractions

== ENCOUNTER → 2019-07-25 | Outpatient (REF) | payer OTHER ==
[~2019-07-25] MED LIST changes: +COLA100C5 PO; +GLUC500T PO; +IBUP80TA PO; +PERCOCET PO
[2019-07-25 14:32] LABS: PERCENT SATURATION 14.6 % (13.2-45.0)
== END ==
LOC: M LAB REF 12:36
PROVIDERS: ATTEND Internal Medicine
DX: D64.9 Anemia, unspecified (principal)

== ENCOUNTER → 2019-09-13 | Outpatient (REF) | payer OTHER | LOC: M LAB REF 12:16 | PROVIDERS: ATTEND Internal Medicine | DX: J01.90 Acute sinusitis, unspecified (principal) ==

== ENCOUNTER 2020-07-26 20:17 | Emergency (ER) | payer OTHER ==
[~2020-07-26] VITALS: Ht 160 cm; Wt 124.6 kg
[2020-07-26 20:18] VITALS: BP 110/79
[2020-07-26] MEDS ORDERED: LIDOCAINE 1% MDV 20ML VIAL SC ONE (20:45)
[2020-07-26] MEDS ORDERED: BOOSTRIX/ADACEL VACCINE (DIPHTH/PERTUSS/ACELL/TETANUS) 0.5ML SYR IM ONE (20:45)
[2020-07-26] MEDS ORDERED: KEFL500C17 PO (21:05)
[2020-07-26] MEDS ORDERED: IBUPROFEN 600MG TAB PO ONE (21:15)
[2020-07-26] MEDS ORDERED: NEOSPORIN OINT 0.9 GM PKT TOP ONE (21:15)
[2020-07-26] MEDS ORDERED: ACETAMINOPHEN TAB 650MG DOSE (2X325MG) PO ONE (21:15)
== END 2020-07-26 21:27 | disposition home or self-care (01) ==
LOC: M ED 20:17
DX: S61.412A Laceration without foreign body of left hand, initial encounter (principal); W26.0XXA Contact with knife, initial encounter; Y92.009 Unspecified place in unspecified non-institutional (private) residence as the place of occurrence of the external cause; Y93.89 Activity, other specified; Y99.8 Other external cause status

== ENCOUNTER 2021-05-26 08:02 | Emergency (ER) | payer OTHER ==
[~2021-05-26] VITALS: Ht 160 cm; Wt 108.7 kg
[~2021-05-26 08:02] MED LIST changes: +KEFL500C17 PO
[2021-05-26] MEDS ORDERED: METF10004 PO (08:08)
[2021-05-26] MEDS ORDERED: LISI2.5T9 PO (08:08)
[2021-05-26] MEDS ORDERED: SERT-141 PO (08:08)
[2021-05-26] MEDS ORDERED: ABIL1TAB11 PO (08:08)
[2021-05-26] MEDS ORDERED: ACETAMINOPHEN 325 MG TAB PO ONE (08:20)
[2021-05-26 08:52] LABS: BASO % 0.4 % (0.0-1.0); EOS # 0.1 10^3/uL (0.0-0.5); EOS % 1.2 % (0.0-3.0); HEMOGLOBIN 14.4 g/dl (12.0-15.5); LYMPH # 2.1 10^3/uL (1.5-5.0); LYMPH % 24.7 % (24.0-44.0); MEAN CORPUSCULAR HEMOGLOBIN 28.7 pg (27.0-33.0); MEAN CORPUSCULAR HGB CONC 33.5 g/dl (32.0-36.5); MEAN CORPUSCULAR VOLUME 85.7 fl (80.0-96.0); MONO # 0.3 10^3/uL (0.0-0.8); NEUTROPHILS # 5.8 10^3/uL (1.5-8.5); NEUTROPHILS % 69.3 % (36.0-66.0); PLATELET COUNT, AUTOMATED 259 10^3/uL (150-450); RED BLOOD COUNT 5.02 10^6/uL (4.00-5.40); WHITE BLOOD COUNT 8.3 10^3/uL (4.0-10.0)
--- NOTE | 2021-05-26 08:54 | REP ---
INDICATION: pain. COMPARISON: None. TECHNIQUE: Four images of the left ankle were obtained. FINDINGS: There are old ununited avulsion fractures of the medial and lateral malleoli. There is no evidence of acute fracture or dislocation. There are no soft tissue abnormalities. There is no significant arthropathy. IMPRESSION: No evidence of fracture, dislocation or significant arthropathy. <Electronically signed by Hugh Naidu > 05/26/21 [id number]
[2021-05-26 09:09] LABS: C REACTIVE PROTEIN QUANTITATIV 1.09 MG/DL (0.00-0.30); URIC ACID 3.3 MG/DL (2.6-6.0)
[2021-05-26 09:30] LABS: ERYTHROCYTE SEDIMENTATION RATE 28 mm/hr (0-20)
[2021-05-26] MEDS ORDERED: NS 1,000 ML IV ONE (09:55)
[2021-05-26 10:47] VITALS: BP 118/72
== END 2021-05-26 11:54 | disposition home or self-care (01) ==
LOC: M ED 08:02
DX: M25.572 Pain in left ankle and joints of left foot (principal); E11.65 Type 2 diabetes mellitus with hyperglycemia; Z79.899 Other long term (current) drug therapy